=== PATIENT | male | born 1995 | race African-American/Black ===

== ENCOUNTER 2024-03-20 11:45 | Emergency (ER) | payer OTHER, SELFPAY ==
[~2024-03-20] VITALS: Ht 175.3 cm; Wt 78.0 kg
[2024-03-20 11:55] VITALS: O2SAT 99
[2024-03-20] MEDS: TETRACAINE/BENZOCAINE/BUTAMBEN 20 GM SPRAY MM NR (14:00)
[2024-03-20] MEDS: KETOROLAC 30MG/ML VIAL IM ONE (14:01)
[2024-03-20] MEDS: DEXAMETHASONE 4MG/ML 1ML VIAL IM ONE (14:01)
[2024-03-20] MEDS ORDERED: IBUP-2030 MT (15:09)
[2024-03-20] MEDS ORDERED: AMOX1TAB16 MT (15:09)
[2024-03-20 15:52] VITALS: BP 112/76; PULSE 93; RESP 16; TEMP 36.94740; O2SAT 99
== END 2024-03-20 15:54 | disposition home or self-care (01) ==
LOC: ER 11:45
DX: J36 Peritonsillar abscess (principal)
CPT/HCPCS: 42700; 96372; 99284; J1100; J1885; Z7610 ×2

== ENCOUNTER 2024-07-19 19:03 | Emergency (ER) | payer OTHER ==
[~2024-07-19] VITALS: Ht 190.5 cm; Wt 79.0 kg
[~2024-07-19 19:03] MED LIST: AMOX1TAB16 MT; IBUP-2030 MT
[2024-07-19 19:06] VITALS: O2SAT 98
[2024-07-19 19:17] VITALS: BP 131/77; PULSE 75; RESP 16; TEMP 37.1; O2SAT 97
[2024-07-19 20:46] LABS: BASOPHILS % 0.9 % (0.0-2.0); DIFFERENTIAL COMMENT 0; EOSINOPHILS % 3.5 % (0.0-5.0); HEMATOCRIT. 45.7 % (42.0-52.0); HEMOGLOBIN. 15.2 g/dL (14.0-18.0); LYMPHOCYTES % 36.2 % (20.0-50.0); MEAN CORPUSCULAR HEMOGLOBIN 29.8 pg (28.0-32.0); MEAN CORPUSCULAR HGB CONC 33.3 g/dL (31.0-37.0); MEAN CORPUSCULAR VOLUME 89.3 fL (80.0-94.0); MONOCYTES % 9.9 % (2.0-8.0); NEUTROPHILS % 49.5 % (40.0-76.0); PLATELET 225 x1000/uL (130-400); RED BLOOD CELL COUNT 5.12 mill/uL (4.7-6.1); RED CELL DISTRIBUTION WIDTH 13.7 % (11.6-14.6); WHITE BLOOD COUNT 5.6 x1000/uL (4.5-11.0)
[2024-07-19 20:52] LABS: CHLORIDE 108 mEq/L (98-107); POTASSIUM 3.8 mEq/L (3.5-5.1); SODIUM 142 mEq/L (136-145)
[2024-07-19 20:53] LABS: CALCIUM 9.2 mg/dL (8.7-10.4); CARBON DIOXIDE 26 mEq/L (21-32)
[2024-07-19 20:58] LABS: CREATININE 1.3 mg/dL (0.6-1.3); GLUCOSE 97 mg/dL (70-105); UREA NITROGEN BLOOD 11 mg/dL (9-23)
[2024-07-19] MEDS ORDERED: CEPH250C2 MT (22:33)
== END 2024-07-19 22:46 | disposition home or self-care (01) ==
LOC: ER 19:03
DX: L03.113 Cellulitis of right upper limb (principal)
CPT/HCPCS: 36415; 80048; 85025; 99283